=== PATIENT | female | born 1980 | race Caucasian/White ===

== ENCOUNTER 2019-01-28 23:21 | Inpatient (IN) ==
[2019-01-29] MEDS ORDERED: Ibuprofen 600 MG TABLET PO ONE (00:15)
[2019-01-29 00:16] LABS: Acetaminophen < 10 mcg/mL (10-20); BUN/Creatinine Ratio 21 (6-26); Blood Urea Nitrogen 15 mg/dL (6-20); Calcium 8.7 mg/dL (8.6-10.3); Carbon Dioxide 23 mEq/L (23-29); Chloride 111 mEq/L (98-107); Ethanol < 10 mg/dL (Less than 10); Glucose 102 mg/dL (70-105); Osmolality,Calculated 291 (280-300); Potassium 3.6 mEq/L (3.5-5.1); Salicylate < 2.5 mg/dL (15.0-30.0); Sodium 140 mEq/L (136-145); eGFR For African Americans > 60 (> 60); eGFR For Non-African Americans > 60 (> 60)
[2019-01-29 00:20] LABS: Bilirubin,Urine Negative (Negative); Blood,Urine Negative (Negative); Clarity,Urine Clear (Clear); Color,Urine Yellow (Yellow); Glucose,Urine (UA) Normal (Normal); Ketones,Urine Negative (Negative); Leukocyte Esterase,Urine Trace (Negative); Nitrite,Urine Negative (Negative); PH,Urine 6.5 pH Units (5.0-8.0); Protein,Urine Negative (Neg-Trace); Specific Gravity,Urine 1.027 (1.010-1.025); Urobilinogen,Urine Normal (Normal)
[2019-01-29 00:22] LABS: Bacteria,Urine Few per hpf (None-Few); Hyaline Casts,Urine None Seen per lpf (None-Few); Squamous Epithelial Cell,Urine Many per lpf (None-Few)
[2019-01-29 00:26] LABS: Amphetamine Screen,Urine Negative ng/mL (Cutoff=1000); Barbiturate Screen,Urine Negative ng/mL (Cutoff=200); Benzodiazepines Screen,Urine Negative ng/mL (Cutoff=200); Cannabinoid Screen,Urine Positive ng/mL (Cutoff = 50); Cocaine Screen,Urine Negative ng/mL (Cutoff= 300); Opiate Screen,Urine Negative ng/mL (Cutoff=300); Phencyclidine Screen,Urine Negative ng/mL (Cutoff=25)
[2019-01-29 00:30] LABS: Basophils # 0.1 K/mcL (0.0-0.2); Basophils % 0.7 %; Eosinophils # 0.3 K/mcL (0.0-0.6); Hemoglobin 13.2 g/dL (11.5-15.4); Lymphocytes # 2.7 K/mcL (0.6-4.6); Lymphocytes % 23.4 %; Mean Corpuscular HGB Conc 33.8 g/dL (31.6-35.5); Mean Corpuscular Volume 94.7 fL (83.0-100.0); Mean Platelet Volume 10.1 fL (9.4-12.4); Monocytes # 1.1 K/mcL (0.0-1.3); Monocytes % 9.8 %; Neutrophils # 7.1 K/mcL (1.6-8.9); Platelet Count 270 K/mcL (140-400); Red Blood Count 4.12 M/mcL (3.82-4.97); Red Cell Distribution Width 12.7 % (11.5-14.5); Segmented Neutrophils % 62.1 %; White Blood Count 11.4 K/mcL (4.3-11.1)
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
[2019-01-29 00:37] LABS: RBC,Urine 0-3 per hpf (0-3)
--- NOTE | 2019-01-29 02:22 | Emergency Department Note ---
Disposition Clinical Impression: Suicidal ideation Depression Qualifiers: Depression Type: unspecified Qualified Code(s): F32.9 - Major depressive disorder, single episode, unspecified Disposition: Admitted As Inpatient Condition: Good Referrals: NONE,PCP [Primary Care Provider] - Forms: ED Satisfaction Letter Time of Disposition: 02:19 General Adult HPI - General Chief complaint: ED Psychiatric Symptoms Stated complaint: si Time Seen by Provider: 01/28/19 23:34 Source: EMS Mode of arrival: private vehicle Limitations: no limitations Nursing Notes Reviewed: Yes Vital Signs Reviewed: Yes - History of Present Illness Pain Scale: 7 - Related Data Home Medications Medication Instructions Recorded Confirmed Buspar 08/21/18 Flexeril 08/21/18 Gabapentin 08/21/18 Omeprazole 08/21/18 Sertraline 08/21/18 Zofran ODT 08/21/18 08/21/18 Previous Rx's Medication Instructions Recorded Loperamide [Imodium] 2 mg PO Q4HR PRN #20 capsule 08/21/18 Allergies Allergy/AdvReac Type Severity Reaction Status Date / Time sumatriptan [From Imitrex] Allergy See Verified 08/21/18 12:59 Comments twilight AdvReac See Uncoded 08/21/18 13:01 Comments Constitutional: Denies: fever, chills Cardiovascular: Denies: chest pain Respiratory: Denies: cough, dyspnea Gastrointestinal: Denies: abdominal pain Past Medical History - Past Medical History Medical history: Reports: other Surgical history: Reports: , hysterectomy, orthopedic, other Psychiatric history: Reports: bipolar [employer] history: Reports: bilateral tubal ligation - Social History Smoking Status: Never smoker Smokeless Tobacco Status: No Alcohol use: Reports: rarely Drug use: Reports: marijuana Physical Exam - General Limitations: no limitations General appearance: alert, in no apparent distress Course Vital Signs Temperature 97.6 F 01/28/19 23:39 Pulse Rate 63 01/28/19 23:39 Respiratory Rate 16 01/28/19 23:39 Blood Pressure 124/85 01/28/19 23:39 O2 Sat by Pulse Oximetry 97 01/28/19 23:39 Temperature 97.6 F 01/28/19 23:39 Pulse Rate 63 01/28/19 23:39 Respiratory Rate 16 01/28/19 23:39 Blood Pressure 124/85 01/28/19 23:39 O2 Sat by Pulse Oximetry 97 01/28/19 23:39 Oxygen Delivery Oxygen Delivery Room Air Medical Decision Making - Lab Data Lab results reviewed: Yes I reviewed the patient's lab results. Result diagrams: 01/28/19 23:45 01/28/19 23:45 Lab Results 01/28/19 01/28/19 01/28/19 Range/Units 23:45 23:45 23:54 WBC 11.4 H (4.3-11.1) K/mcL RBC 4.12 (3.82-4.97) M/mcL Hgb 13.2 (11.5-15.4) g/dL Hct 39.0 (35.3-44.9) % MCV 94.7 (83.0-100.0) fL MCH 32.0 (28.0-33.3) pg MCHC 33.8 (31.6-35.5) g/dL RDW 12.7 (11.5-14.5) % Plt Count 270 (140-400) K/mcL MPV 10.1 (9.4-12.4) fL Immature Gran % 1.0 (0-4) % Seg Neutrophils % 62.1 % Lymphocytes % 23.4 % Monocytes % 9.8 % Eosinophils % 3.0 % Basophils % 0.7 % Neutrophils # 7.1 (1.6-8.9) K/mcL Lymphocytes # 2.7 (0.6-4.6) K/mcL Monocytes # 1.1 (0.0-1.3) K/mcL Eosinophils # 0.3 (0.0-0.6) K/mcL Basophils # 0.1 (0.0-0.2) K/mcL Sodium 140 (136-145) mEq/L Potassium 3.6 (3.5-5.1) mEq/L Chloride 111 H (98-107) mEq/L Carbon Dioxide 23 (23-29) mEq/L BUN 15 (6-20) mg/dL Creatinine 0.70 (0.60-1.20) mg/dL Est GFR ( Amer) > 60 (> 60) Est GFR (Non-Af Amer) > 60 (> 60) BUN/Creatinine Ratio 21 (6-26) Glucose 102 (70-105) mg/dL Calculated Osmolality 291 (280-300) Calcium 8.7 (8.6-10.3) mg/dL Urine Color Yellow (Yellow) Urine Clarity Clear (Clear) Urine pH 6.5 (5.0-8.0) pH Units Ur Specific [place] 1.027 H (1.010-1.025) Urine Protein Negative (Neg-Trace) mg/dL Urine Glucose (UA) Normal (Normal) mg/dL Urine Ketones Negative (Negative) mg/dL Urine Blood Negative (Negative) Urine Nitrite Negative (Negative) Urine Bilirubin Negative (Negative) Urine Urobilinogen Normal (Normal) mg/dL Ur Leukocyte Esterase Trace H (Negative) Urine Microscopic RBC 0-3 (0-3) per hpf Urine Microscopic WBC 3-5 H (0-3) per hpf Ur Squamous Epith Cells Many H (None-Few) per lpf Urine Bacteria Few (None-Few) per hpf Hyaline Casts None Seen (None-Few) per lpf Urine Test (Negative) Salicylates < 2.5 L (15.0-30.0) mg/dL Urine Opiates Screen (Jkertr=007) ng/mL Ur Buprenorphine Scrn (Cutoff=5) ng/mL Acetaminophen < 10 L (10-20) mcg/mL Ur Barbiturates Screen (Ibwnos=325) ng/mL Ur Phencyclidine Scrn (Cutoff=25) ng/mL Ur Amphetamines Screen (Absvww=4086) ng/mL U Benzodiazepines Scrn (Rsdlns=562) ng/mL Urine Cocaine Screen (Cutoff= 300) ng/mL U Marijuana (THC) Screen (Cutoff = 50) ng/mL Ur Drug Screen Interp Ethyl Alcohol < 10 (Less than 10) mg/dL 01/28/19 01/28/19 Range/Units 23:54 23:54 WBC (4.3-11.1) K/mcL RBC (3.82-4.97) M/mcL Hgb (11.5-15.4) g/dL Hct (35.3-44.9) % MCV (83.0-100.0) fL MCH (28.0-33.3) pg MCHC (31.6-35.5) g/dL RDW (11.5-14.5) % Plt Count (140-400) K/mcL MPV (9.4-12.4) fL Immature Gran % (0-4) % Seg Neutrophils % % Lymphocytes % % Monocytes % % Eosinophils % % Basophils % % Neutrophils # (1.6-8.9) K/mcL Lymphocytes # (0.6-4.6) K/mcL Monocytes # (0.0-1.3) K/mcL Eosinophils # (0.0-0.6) K/mcL Basophils # (0.0-0.2) K/mcL Sodium (136-145) mEq/L Potassium (3.5-5.1) mEq/L Chloride (98-107) mEq/L Carbon Dioxide (23-29) mEq/L BUN (6-20) mg/dL Creatinine (0.60-1.20) mg/dL Est GFR ( Amer) (> 60) Est GFR (Non-Af Amer) (> 60) BUN/Creatinine Ratio (6-26) Glucose (70-105) mg/dL Calculated Osmolality (280-300) Calcium (8.6-10.3) mg/dL Urine Color (Yellow) Urine Clarity (Clear) Urine pH (5.0-8.0) pH Units Ur Specific [place] (1.010-1.025) Urine Protein (Neg-Trace) mg/dL Urine Glucose (UA) (Normal) mg/dL Urine Ketones (Negative) mg/dL Urine Blood (Negative) Urine Nitrite (Negative) Urine Bilirubin (Negative) Urine Urobilinogen (Normal) mg/dL Ur Leukocyte Esterase (Negative) Urine Microscopic RBC (0-3) per hpf Urine Microscopic WBC (0-3) per hpf Ur Squamous Epith Cells (None-Few) per lpf Urine Bacteria (None-Few) per hpf Hyaline Casts (None-Few) per lpf Urine Test Negative (Negative) Salicylates (15.0-30.0) mg/dL Urine Opiates Screen Negative (Lzrbvw=807) ng/mL Ur Buprenorphine Scrn Negative (Cutoff=5) ng/mL Acetaminophen (10-20) mcg/mL Ur Barbiturates Screen Negative (Wxqydi=914) ng/mL Ur Phencyclidine Scrn Negative (Cutoff=25) ng/mL Ur Amphetamines Screen Negative (Fuaaea=9037) ng/mL U Benzodiazepines Scrn Negative (Ecbbso=695) ng/mL Urine Cocaine Screen Negative (Cutoff= 300) ng/mL U Marijuana (THC) Screen Positive H (Cutoff = 50) ng/mL Ur Drug Screen Interp See Below Ethyl Alcohol (Less than 10) mg/dL Attestation Statement - Attestation Attestation: I, Velasquez Lu MD, personally evaluated this patient and discussed their management with the midlevel provicer, PAC/RADIO DIRECTOR. I reviewed the midlevel provider's note and agree with the documented findings, medical decision making, and plan of care. 38-year-old female presented to the emergency department complaining of some suicidal ideation. No homicidal ideation. No hallucinations. On examination patient is a well-developed well-nourished well-appearing female in no acute distress. She is alert and oriented 3. There is no cyanosis or diaphoresis. Breath sounds are clear and equal bilaterally. Heart regular rate and rhythm. Abdomen is soft and nontender with normal bowel sounds. Labs reviewed. Patient medically cleared for psychiatric evaluation. [address] psychiatry department was consulted and evaluated patient in the emergency department. After evaluation patient is being admitted to the [address] psychiatric unit.
[2019-01-29] MEDS ORDERED: Mag Hydrox/Al Hydrox/Simeth 30 ML UDC PO PRN (02:32)
[2019-01-29] MEDS ORDERED: *HR* LORazepam 2 MG/ML VIAL IM PRN (02:32)
[2019-01-29] MEDS ORDERED: MOM Conc 10 ML UD.LIQ PO PRN (02:32)
[2019-01-29] MEDS ORDERED: Haloperidol Lactate 5 MG/ML VIAL IM PRN (02:32)
[2019-01-29] MEDS ORDERED: *HR* LORazepam 1 MG TABLET PO PRN (02:32)
[2019-01-29] MEDS ORDERED: Acetaminophen 325 MG TABLET PO PRN (02:32)
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
[2019-01-29] MEDS ORDERED: Ondansetron ODT 4 MG TAB.RAPDIS PO PRN (12:52)
[2019-01-29] MEDS ORDERED: traZODone 50 MG TABLET PO PRN (12:52)
[2019-01-29] MEDS: Gabapentin 400 MG CAPSULE PO SCH ×2 (14:25→20:50)
[2019-01-29] MEDS: Lurasidone 20 MG TABLET PO SCH (20:50)
[2019-01-29] MEDS: hydrOXYzine pamoate 25 MG CAPSULE PO PRN (20:53)
[2019-01-29] MEDS: rOPINIRole 0.25 MG TABLET PO SCH (20:53)
[2019-01-30] MEDS: Gabapentin 400 MG CAPSULE PO SCH ×2 (10:38→21:22)
--- NOTE | 2019-01-30 10:58 | Psychiatry Progress Note ---
Date of Encounter: 01/30/19 Time of Encounter: 10:49 Subjective Interval history: Client reports she is doing better. Slept hard last night. Claims she has not slept that well in a long time. Restlessness did not interfere with sleep so hopefully the Requip is doing something for her. Client talked to sister last night. Sister states she took Neurontin in the past and had side effects to it including akathesia type restlessness. Client wondering if she should stop Neurontin. However, she does report some benefit from it for Fibromyalgia. Discussed how her new antidepressant, Cymbalta, can also offer some benefit for Fibromyalgia. Discussed starting to reduce Neurontin and titrating up on the Cymbalta and client expressed interest in doing this. Denying SI today. If she does well with med changes and continues to deny SI may be able to discharge as soon as tomorrow. Review of Systems Constitutional: Denies: fever, chills, weakness, weight change Eyes: Denies: eye pain, vision change Ears, Nose, Throat: Denies: ear pain, throat pain, dental pain, hearing loss, congestion Cardiovascular: Denies: chest pain, palpitations, dyspnea on exertion Respiratory: Denies: cough, dyspnea, wheezes Gastrointestinal: Denies: abdominal pain, nausea, vomiting, diarrhea, constipation Musculoskeletal: Denies: joint swelling, joint pain Neurological: Denies: headache, weakness, numbness, memory loss Results - Vital Signs Vital Signs: Temp Pulse Resp BP Pulse Ox 97.9 F 58 16 127/71 98 01/29/19 20:24 01/29/19 20:24 01/29/19 20:24 01/29/19 20:24 01/29/19 20:24 Assessment and Plan (1) Major depressive disorder Current visit: Yes Status: Acute Plan: Continue hospitalization, Close observation, Suicide Precautions per unit protocol, Encourage participation in unit milieu, Group Therapy, Monitor sleep, Monitor appetite Risks, benefits, side effects, alternatives discussed w/pt: Yes Patient agreeable to treatment: Yes Qualifiers: Major depression recurrence: recurrent Active/Remission status: currently active Major depression episode severity: severe Psychotic features: without psychotic features Qualified Code(s): F33.2 - Major depressive disorder, recurrent severe without psychotic features Consult Discharge Plan - Plan Referrals: [facility] [Outside] - 02/03/19 7:30 am (You have an appointment scheduled for Sunday, February 03, 2019 at 7:[address] Gillian Kohler D.O. for medication management. Please contact the office at least 24 hours in advance if you are unable to keep your appointment(s). ) Psychiatry Exam - Constitutional Vitals: Temp Pulse Resp BP Pulse Ox 97.9 F 58 16 127/71 98 01/29/19 20:24 01/29/19 20:24 01/29/19 20:24 01/29/19 20:24 01/29/19 20:24 General appearance: age & developmentally appropriate, well-groomed, well- nourished - Musculoskeletal Gait: normal Station: relaxed Strength & Tone: normal for patient - Psychiatric Patient Orientation: Yes Person, Yes Time, Yes Place Level of alertness: Alert Behavior: calm, cooperative Psychomotor activity: Normal Eye Contact: Maintains Eye Contact Mood Description: Depressed Affect description: congruent with mood Speech Volume: Normal Speech pattern: normal rate, normal rhythm, normal tone, fluent, spontaneous Language & Vocabulary: consistent with education Thought Process: Linear, Goal Oriented Thought Content: No Suicidal ideation, No Homicidal ideation, No Overt delusions Perceptual Disturbances: No Auditory hallucinations, No Visual hallucinations Attention Span Ability: Capable of Focused Attention Memory Description: Grossly Intact Patient Reliability: Reliable Historian Fund of knowledge: Yes abstraction ability, Yes aware of current events Intelligence Estimate: Average Judgment: Fair Insight: Partial
[2019-01-30] MEDS: hydrOXYzine pamoate 25 MG CAPSULE PO PRN ×2 (13:56→21:22)
[2019-01-30] MEDS: rOPINIRole 0.25 MG TABLET PO SCH (21:22)
[2019-01-30] MEDS: Lurasidone 20 MG TABLET PO SCH (21:23)
[2019-01-30] MEDS: traZODone 50 MG TABLET PO PRN (21:25)
[2019-01-31] MEDS: Gabapentin 400 MG CAPSULE PO SCH ×2 (09:51→20:08)
--- NOTE | 2019-01-31 11:57 | Psychiatry Progress Note ---
Date of Encounter: 01/31/19 Time of Encounter: 11:50 Subjective Interval history: Tentative plan was to discharge client today but she has put the brakes on. Wants to go home tomorrow instead. States she had a lot of anxiety last night and could not sleep. Family visited yesterday. Although staff report it seemed like a good visit, client states she felt very stressed. Became aggravated when she learned that her mother came to her house and threw away her prescriptions. States she also learned her family is not giving the dog food and water like they should and that they are leaving dirty dishes everywhere. Doesn't feel able to deal with these life stressors yet. Limited coping skills. Client would likely benefit from groups to learn new ways of managing her stress. Since she has been here over the weekend she has not had exposure to the groups. Likely would benefit from one more day in the hospital. Denies SI but remains tense. Decrease in Neurontin may have also heightened her anxiety level. Will not make any additional med changes and give her time to adjust. Review of Systems Constitutional: Denies: fever, chills, weakness, weight change Eyes: Denies: eye pain, vision change Ears, Nose, Throat: Denies: ear pain, throat pain, dental pain, hearing loss, congestion Cardiovascular: Denies: chest pain, palpitations, dyspnea on exertion Respiratory: Denies: cough, dyspnea, wheezes Gastrointestinal: Denies: abdominal pain, nausea, vomiting, diarrhea, constipation Musculoskeletal: Denies: joint swelling, joint pain Neurological: Denies: headache, weakness, numbness, memory loss Results - Vital Signs Vital Signs: Temp Pulse Resp BP Pulse Ox 97.3 F L 56 16 130/91 100 01/31/19 09:00 01/31/19 09:00 01/31/19 09:00 01/31/19 09:00 01/31/19 09:00 Assessment and Plan (1) Major depressive disorder Current visit: Yes Status: Acute Plan: Continue hospitalization, Close observation, Suicide Precautions per unit protocol, Encourage participation in unit milieu, Group Therapy, Monitor sleep, Monitor appetite Risks, benefits, side effects, alternatives discussed w/pt: Yes Patient agreeable to treatment: Yes Qualifiers: Major depression recurrence: recurrent Active/Remission status: currently active Major depression episode severity: severe Psychotic features: without psychotic features Qualified Code(s): F33.2 - Major depressive disorder, recurrent severe without psychotic features Consult Discharge Plan - Plan Referrals: [facility] [Outside] - 02/03/19 7:30 am (You have an appointment scheduled for Sunday, February 03, 2019 at 7:[address] Gillian Kohler D.O. for medication management. Please contact the office at least 24 hours in advance if you are unable to keep your appointment(s). ) Psychiatry Exam - Constitutional Vitals: Temp Pulse Resp BP Pulse Ox 97.3 F L 56 16 130/91 100 01/31/19 09:00 01/31/19 09:00 01/31/19 09:00 01/31/19 09:00 01/31/19 09:00 General appearance: age & developmentally appropriate, well-groomed, well- nourished - Musculoskeletal Gait: normal Station: relaxed Strength & Tone: normal for patient - Psychiatric Patient Orientation: Yes Person, Yes Time, Yes Place Level of alertness: Alert Behavior: calm, cooperative Psychomotor activity: Normal Eye Contact: Maintains Eye Contact Mood Description: Depressed, Anxious Affect description: congruent with mood Speech Volume: Normal Speech pattern: normal rate, normal rhythm, normal tone, fluent, spontaneous Language & Vocabulary: consistent with education Thought Process: Linear, Goal Oriented Thought Content: No Suicidal ideation, No Homicidal ideation, No Overt delusions Perceptual Disturbances: No Auditory hallucinations, No Visual hallucinations Attention Span Ability: Capable of Focused Attention Memory Description: Grossly Intact Patient Reliability: Reliable Historian Fund of knowledge: Yes abstraction ability, Yes aware of current events Intelligence Estimate: Average Judgment: Fair Insight: Partial
[2019-01-31] MEDS: traZODone 50 MG TABLET PO PRN (20:07)
[2019-01-31] MEDS: hydrOXYzine pamoate 25 MG CAPSULE PO PRN (20:07)
[2019-01-31] MEDS: Lurasidone 20 MG TABLET PO SCH (20:08)
[2019-01-31] MEDS: rOPINIRole 0.25 MG TABLET PO SCH (20:08)
[2019-02-01] MEDS: Gabapentin 400 MG CAPSULE PO SCH ×2 (08:58→20:56)
[2019-02-01] MEDS: hydrOXYzine pamoate 25 MG CAPSULE PO PRN (10:47)
[2019-02-01] MEDS ORDERED: Ziprasidone 20 MG CAPSULE PO PRN (13:11)
--- NOTE | 2019-02-01 14:25 | Psychiatry Progress Note ---
Date of Encounter: 02/01/19 Time of Encounter: 10:20 Subjective Interval history: Client seen in common area. She was affable, calm, cooperative. Client hesitant when responding to Suicidal ideation/plan/intent. She endorsed some thoughts of SI without plan or intent. Client actively crying while discussing discharge plans and relationship with her spouse. She reports feeling well rested and slept well. She participated in group today. Review of Systems Constitutional: Denies: fever, chills, weakness Eyes: Denies: vision change Ears, Nose, Throat: Denies: hearing loss, congestion Cardiovascular: Denies: chest pain, palpitations, dyspnea on exertion, syncope Respiratory: Denies: cough, dyspnea, wheezes Gastrointestinal: Denies: abdominal pain, nausea, vomiting, diarrhea, constipation Genitourinary female: Denies: urgency, dysuria, frequency Musculoskeletal: Denies: joint pain Neurological: Denies: headache, weakness, numbness, confusion, memory loss Psychiatric: Reports: depression, anxiety, suicidal ideation. Denies: abnormal sleep pattern, change in appetite, homicidal ideation Results - Vital Signs Vital Signs: Temp Pulse Resp BP Pulse Ox 97.6 F 63 18 115/85 100 02/01/19 09:00 02/01/19 09:00 02/01/19 09:00 02/01/19 09:00 02/01/19 09:00 Assessment and Plan (1) Major depressive disorder Current visit: Yes Status: Acute Plan: Continue hospitalization, Close observation, Suicide Precautions per unit protocol, Encourage participation in unit milieu, Group Therapy, Monitor sleep Risks, benefits, side effects, alternatives discussed w/pt: Yes Patient agreeable to treatment: Yes Qualifiers: Major depression recurrence: recurrent Active/Remission status: currently active Major depression episode severity: severe Psychotic features: without psychotic features Qualified Code(s): F33.2 - Major depressive disorder, recurrent severe without psychotic features Consult Discharge Plan - Plan Referrals: [facility] [Outside] - 02/03/19 7:30 am (You have an appointment scheduled for Friday, February 03, 2019 at 7:30 AM with Edwin [email or web address] for medication management. Please contact the office at least 24 hours in advance if you are unable to keep your appointment(s). ) - Attending Attestation I examined this patient and my medical decision-making was reviewed with the Resident Physician. I agree with the documented findings, disposition and treatment plan as described except to the extent set forth below. Agree with mental status and plan. Psychiatry Exam - Constitutional Vitals: Temp Pulse Resp BP Pulse Ox 97.6 F 63 18 115/85 100 02/01/19 09:00 02/01/19 09:00 02/01/19 09:00 02/01/19 09:00 02/01/19 09:00 General appearance: age & developmentally appropriate - Musculoskeletal Gait: normal Station: relaxed Strength & Tone: normal for patient - Psychiatric Patient Orientation: Yes Person, Yes Time, Yes Place, Yes Circumstance Level of alertness: Alert Behavior: calm, cooperative, tearful Psychomotor activity: Normal Eye Contact: Maintains Eye Contact Mood Description: Depressed, Anxious Affect description: congruent with mood Speech Volume: Normal Speech pattern: normal rate, normal rhythm, normal tone Language & Vocabulary: consistent with education Thought Process: Intact, Logical, Linear, Goal Oriented Thought Content: Yes Intact, Yes Suicidal ideation, No Homicidal ideation, No Overt delusions, No Ideas of reference, No Preoccupation Perceptual Disturbances: No Reacting to internal stimuli, No Auditory hallucinations, No Visual hallucinations, No Tactile hallucinations Attention Span Ability: Capable of Focused Attention Memory Description: Grossly Intact Patient Reliability: Reliable Historian Fund of knowledge: Yes abstraction ability Intelligence Estimate: Average Judgment: Fair Insight: Partial
[2019-02-01] MEDS: Lurasidone 20 MG TABLET PO SCH (20:52)
[2019-02-01] MEDS: rOPINIRole 0.25 MG TABLET PO SCH (20:57)
[2019-02-01] MEDS: traZODone 50 MG TABLET PO PRN (20:57)
[2019-02-02] MEDS: Gabapentin 400 MG CAPSULE PO SCH (08:15)
[2019-02-02 09:43] VITALS: BP 111/82
--- NOTE | 2019-02-02 09:48 | Discharge Summary ---
Date of Encounter: 02/02/19 Time of Encounter: 08:00 Diagnosis - Discharge Diagnosis (1) Major depressive disorder Status: Acute Qualifiers: Major depression recurrence: recurrent Active/Remission status: currently active Major depression episode severity: severe Psychotic features: without psychotic features Qualified Code(s): F33.2 - Major depressive disorder, recurrent severe without psychotic features Medications - Discharge Medications Prescriptions: DULoxetine [Cymbalta] 60 mg PO DAILY #30 capsule. hydrOXYzine pamoate [Vistaril] 25 mg PO TID PRN #45 capsule PRN Reason: Anxiety Buspirone HCl [Buspar] 15 mg PO BID PRN 08/21/18 [History] Cyclobenzaprine HCl 5 mg PO TID PRN 08/21/18 [History] Ondansetron ODT [Zofran ODT] 4 mg PO TID PRN 08/21/18 [History] Gabapentin 800 mg PO BID 01/29/19 [History] Lurasidone HCl [Latuda] 60 mg PO HS 01/29/19 [History] Trazodone HCl 50 mg PO HS PRN 01/29/19 [History] DULoxetine [Cymbalta] 60 mg PO DAILY #30 capsule. 02/02/19 [Rx] hydrOXYzine pamoate [Vistaril] 25 mg PO TID PRN #45 capsule 02/02/19 [Rx] rOPINIRole [Requip] 0.25 mg PO HS tablet 02/02/19 [Rx] Allergy/AdvReac Type Severity Reaction Status Date / Time sumatriptan [From Imitrex] Allergy See Verified 01/29/19 11:51 Comments twilight AdvReac See Uncoded 01/29/19 11:51 Comments Results Procedures and tests throughout hospitalization: Completed Lab Orders Category Date Time Status Acetaminophen Stat Lab 01/28/19 23:45 Completed Basic Metabolic Panel Stat Lab 01/28/19 23:45 Completed Complete Blood Count [HEME] Stat Lab 01/28/19 23:45 Completed Drug Screen, Urine [UCHEM] Stat Lab 01/28/19 23:54 Completed Ethanol Stat Lab 01/28/19 23:45 Completed Test Result, Urine [URIN] Stat Lab 01/28/19 23:54 Completed Salicylate Stat Lab 01/28/19 23:45 Completed Urinalysis reflex Microscopic [URIN] Stat Lab 01/28/19 23:54 Completed Provider Date of admission: 01/29/19 02:20 Primary care physician: PCP NONE Discharging clinician: Nesah Eli Psychiatry Exam - Constitutional Vitals: Temp Pulse Resp BP Pulse Ox 97.0 F L 68 18 111/82 99 02/02/19 09:00 02/02/19 09:00 02/02/19 09:00 02/02/19 09:00 02/02/19 09:00 General appearance: age & developmentally appropriate, well-groomed, well- nourished - Musculoskeletal Gait: normal Station: relaxed Strength & Tone: normal for patient - Psychiatric Patient Orientation: Yes Person, Yes Time, Yes Place, Yes Circumstance Level of alertness: Alert Behavior: calm, cooperative Psychomotor activity: Normal Eye Contact: Maintains Eye Contact Mood Description: Euthymic/stable Patient description of mood: Good Affect description: congruent with mood, full range Speech Volume: Normal Speech pattern: normal rate, normal rhythm, normal tone, fluent, spontaneous Language & Vocabulary: consistent with education Thought Process: Linear, Goal Oriented Thought Content: No Suicidal ideation, No Homicidal ideation, No Overt delusions Perceptual Disturbances: No Auditory hallucinations, No Visual hallucinations Attention Span Ability: Capable of Focused Attention Memory Description: Grossly Intact Patient Reliability: Reliable Historian Fund of knowledge: Yes abstraction ability, Yes aware of current events Intelligence Estimate: Average Judgment: Good Insight: Full Hospital Course Hospital course: Ms. Wood is a 38 year old female who was admitted for depression and suicidal ideation. She was started on Cymbalta and Vistaril for anxiety.Patient was educated of diagnosis and the risk-benefit side effects of this alternative treatment options and was monitored for responsiveness and side effects. Mood anxiety sleep and appetite interest improved as did future orientation. Self- harm thoughts subsided, thinking cleared, psychosis resolved, and mood stabilized. Patient was able to attend both individual and group therapy sessions as well as meet with the psychiatrist daily and urged to discuss any medication or treatment issues or other concerns. The patient was educated primarily by verbal means about their diagnosis and manifestations in their life. The option for treatment including group and individual therapy programming was offered to the patient in addition to the use of medications with all their potential risks, benefits, and side effects as well as the risks of not taking medication and non-adhereance were discussed with the patient at length. The patient was given the opportunity to ask questions and was noted to participate in the treatment in the planning process. The patient felt ready and eager to be discharged from the inpatient psychiatric unit to continue on with treatment as an outpatient. The patient agreed that is they were safe for this disposition. The patient was considered to be able to participate in informed consent and decision making with respect to medical, legal, and financial issues of the time of discharge. At the time of discharge the patient adamantly denied any concerns for lethality including suicidal or homicidal thoughts ideations or plans and was future oriented toward ongoing mental health care, medical follow-up and sobriety. Time spent discussing smoking cessation with patient: 3 to 10 minutes - Time Spent with Patient Total time spent providing and/or coordinating discharge services: 25 Less than 30 minutes Specific discharge activities: Interval history reviewed. Available labs reviewed . Psychotherapy provided. Patient had an opportunity to ask questions and address concerns. Patient was in agreement with the treatment plan. The r isks benefits and side effects of medications were discussed with the patient, including alternatives and treatment. The patient was educated on the abstaining from any alcohol or illicit substances, following up with all scheduled appointments, and taking all medications as prescribed. Assessment and Plan - Patient/Caregiver Discharge Instructions Activity: resume usual activities as tolerated Diet: regular diet Additional Instructions: Continue current medications. Follow up with outpatient mental health. Encourage continued therapy in a group or individual setting. The patient was discharged to home. - Follow up Plan Follow up with: [facility] [Outside] - 02/03/19 7:30 am (You have an appointment scheduled for Sunday, February 03, 2019 at 7:[address] Gillian Kohler D.O. for medication management. Please contact the office at least 24 hours in advance if you are unable to keep your appointment(s). ) Overall status at discharge: Stable Disposition: Home, Self-Care Quality - Multiple Antipsychotics Patient discharged on 2 or more antipsychotic medications: No Procedures - Procedures Procedures: Medication Management, Crisis Stabilization, Supportive Therapy, Group Therapy, Psychoeducational Therapy
== END 2019-02-02 17:20 | disposition home or self-care (01) | DRG 751 ==
LOC: EMEROOARM 23:21 → 1ANU 23:21 → OBSVTOIN 01-29 02:20 → 1ANU 01-29 02:27
PROVIDERS: ADMIT Psychiatry & Neurology Psychiatry; ATTEND Psychiatry & Neurology Psychiatry

== ENCOUNTER 2019-06-07 17:31 | Inpatient (IN) ==
[2019-06-07 17:58] LABS: Bilirubin,Urine Negative (Negative); Blood,Urine Negative (Negative); Clarity,Urine Cloudy (Clear); Color,Urine Yellow (Yellow); Glucose,Urine (UA) Normal (Normal); Ketones,Urine Negative (Negative); Leukocyte Esterase,Urine Negative (Negative); Nitrite,Urine Negative (Negative); PH,Urine 5.5 pH Units (5.0-8.0); Protein,Urine Negative (Neg-Trace); Specific Gravity,Urine 1.018 (1.010-1.025); Urobilinogen,Urine Normal (Normal)
[2019-06-07 17:59] LABS: Bacteria,Urine Few per hpf (None-Few); Hyaline Casts,Urine None Seen per lpf (None-Few); Squamous Epithelial Cell,Urine Many per lpf (None-Few); WBC,Urine 0-3 per hpf (0-3)
[2019-06-07 18:10] LABS: RBC,Urine 0-3 per hpf (0-3)
[2019-06-07 18:21] LABS: Amphetamine Screen,Urine Negative ng/mL (Cutoff=1000); Barbiturate Screen,Urine Negative ng/mL (Cutoff=200); Benzodiazepines Screen,Urine Negative ng/mL (Cutoff=200); Cannabinoid Screen,Urine Positive ng/mL (Cutoff = 50); Cocaine Screen,Urine Negative ng/mL (Cutoff= 300); Opiate Screen,Urine Negative ng/mL (Cutoff=300); Phencyclidine Screen,Urine Negative ng/mL (Cutoff=25)
[2019-06-07 18:24] LABS: Basophils # 0.1 K/mcL (0.0-0.2); Basophils % 0.7 %; Eosinophils # 0.2 K/mcL (0.0-0.6); Eosinophils % 1.6 %; Hematocrit 44.2 % (35.3-44.9); Hemoglobin 15.1 g/dL (11.5-15.4); Immature Granulocytes % 0.3 % (0-4); Lymphocytes # 3.6 K/mcL (0.6-4.6); Mean Corpuscular HGB Conc 34.2 g/dL (31.6-35.5); Mean Corpuscular Hemoglobin 32.6 pg (28.0-33.3); Mean Corpuscular Volume 95.5 fL (83.0-100.0); Mean Platelet Volume 9.7 fL (9.4-12.4); Monocytes # 1.1 K/mcL (0.0-1.3); Monocytes % 10.3 %; Neutrophils # 5.7 K/mcL (1.6-8.9); Platelet Count 303 K/mcL (140-400); Red Blood Count 4.63 M/mcL (3.82-4.97); Segmented Neutrophils % 53.1 %; White Blood Count 10.6 K/mcL (4.3-11.1)
[2019-06-07 18:53] LABS: Acetaminophen < 10 mcg/mL (10-20); BUN/Creatinine Ratio 19 (6-26); Blood Urea Nitrogen 13 mg/dL (6-20); Calcium 9.7 mg/dL (8.6-10.3); Carbon Dioxide 20 mEq/L (23-29); Chloride 107 mEq/L (98-107); Ethanol < 10 mg/dL (Less than 10); Glucose 101 mg/dL (70-105); Osmolality,Calculated 284 (280-300); Potassium 3.5 mEq/L (3.5-5.1); Salicylate < 2.5 mg/dL (15.0-30.0); Sodium 137 mEq/L (136-145); eGFR For African Americans > 60 (> 60); eGFR For Non-African Americans > 60 (> 60)
[2019-06-07] MEDS ORDERED: *HR* LORazepam 1 MG TABLET PO PRN (20:38)
[2019-06-07] MEDS ORDERED: traZODone 50 MG TABLET PO PRN (20:38)
[2019-06-07] MEDS ORDERED: *HR* LORazepam 2 MG/ML VIAL IM PRN (20:38)
[2019-06-07] MEDS ORDERED: Mag Hydrox/Al Hydrox/Simeth 30 ML UDC PO PRN (20:38)
[2019-06-07] MEDS ORDERED: MOM Conc 10 ML UD.LIQ PO PRN (20:38)
[2019-06-07] MEDS ORDERED: Haloperidol Lactate 5 MG/ML VIAL IM PRN (20:38)
[2019-06-07] MEDS ORDERED: Acetaminophen 325 MG TABLET PO PRN (20:38)
[2019-06-07] MEDS ORDERED: Lurasidone 20 MG TABLET PO SCH (21:00)
[2019-06-07] MEDS: hydrOXYzine pamoate 25 MG CAPSULE PO PRN (21:28)
[2019-06-08] MEDS ORDERED: Ondansetron ODT 4 MG TAB.RAPDIS PO PRN (10:26)
[2019-06-08] MEDS: hydrOXYzine pamoate 25 MG CAPSULE PO PRN (13:19)
[2019-06-08] MEDS: Gabapentin 400 MG CAPSULE PO SCH (20:06)
[2019-06-08] MEDS: risperiDONE 1 MG TABLET PO SCH (20:06)
[2019-06-08] MEDS ORDERED: rOPINIRole 0.25 MG TABLET PO SCH (21:00)
[2019-06-09] MEDS: Gabapentin 400 MG CAPSULE PO SCH ×2 (08:18→20:34)
[2019-06-09] MEDS: hydrOXYzine pamoate 25 MG CAPSULE PO PRN ×2 (09:09→11:42)
[2019-06-09 11:28] LABS: Chol/HDL Ratio 5.3 (0-4.9)
[2019-06-09 11:55] LABS: Estimated Average Glucose 114 mg/dl
[2019-06-09] MEDS: clonazePAM 0.5 MG TABLET PO PRN ×2 (15:08→20:36)
[2019-06-09] MEDS: risperiDONE 1 MG TABLET PO SCH (20:34)
[2019-06-09] MEDS ORDERED: rOPINIRole 0.25 MG TABLET PO SCH (21:00)
[2019-06-10] MEDS: Gabapentin 400 MG CAPSULE PO SCH (08:27)
[2019-06-10] MEDS: clonazePAM 0.5 MG TABLET PO PRN (08:28)
[2019-06-10] MEDS ORDERED: Cholecalciferol (D-3) 1,000 UNIT (25MCG) TABLET PO SCH (09:00)
[2019-06-10 09:07] VITALS: BP 123/89
[2019-06-10] MEDS: hydrOXYzine pamoate 25 MG CAPSULE PO PRN (09:51)
== END 2019-06-10 11:33 | disposition home or self-care (01) | DRG 751 ==
LOC: EMEROOARM 17:31 → 1ANU 17:31
PROVIDERS: ADMIT Psychiatry & Neurology Psychiatry; ATTEND Psychiatry & Neurology Psychiatry

== ENCOUNTER 2019-10-13 14:09 | Observation (INO) ==
[2019-10-13] MEDS ORDERED: Isovue-370 500 ML BOTTLE IVP ONE (14:31)
[2019-10-13] MEDS ORDERED: Ondansetron 4 MG/2 ML VIAL IVP ONE (14:33)
[2019-10-13] MEDS ORDERED: *HR* LORazepam 2 MG/ML VIAL IVP ONE ×2 (14:33→22:01)
[2019-10-13] MEDS ORDERED: 0.9 % Sodium Chloride 1,000 ML IVC ONE ×2 (14:33→16:43)
[2019-10-13 14:52] LABS: Basophils # 0.1 K/mcL (0.0-0.2); Basophils % 0.5 %; Eosinophils # 0.1 K/mcL (0.0-0.6); Eosinophils % 0.8 %; Hematocrit 47.6 % (35.3-44.9); Hemoglobin 16.2 g/dL (11.5-15.4); Immature Granulocytes % 0.4 % (0-4); Lymphocytes # 2.5 K/mcL (0.6-4.6); Lymphocytes % 20.6 %; Mean Corpuscular Hemoglobin 31.8 pg (28.0-33.3); Mean Corpuscular Volume 93.5 fL (83.0-100.0); Mean Platelet Volume 10.2 fL (9.4-12.4); Monocytes # 1.1 K/mcL (0.0-1.3); Monocytes % 9.1 %; Neutrophils # 8.4 K/mcL (1.6-8.9); Platelet Count 370 K/mcL (140-400); Red Blood Count 5.09 M/mcL (3.82-4.97); Red Cell Distribution Width 13.1 % (11.5-14.5); Segmented Neutrophils % 68.6 %; White Blood Count 12.2 K/mcL (4.3-11.1)
[2019-10-13 15:11] LABS: Alanine Aminotransferase 43 Units/L (7-52); Albumin 4.7 g/dL (3.5-5.7); Albumin/Globulin Ratio 1.3 (1.1-2.2); Alkaline Phosphatase 111 Units/L (34-104); Aspartate Amino Transferase 31 Units/L (13-39); BUN/Creatinine Ratio 19 (6-26); Bilirubin,Direct 0.1 mg/dL (0.0-0.2); Bilirubin,Indirect 0.7 mg/dL (0.0-1.0); Bilirubin,Total 0.8 mg/dL (0.3-1.0); Blood Urea Nitrogen 14 mg/dL (6-20); C-Reactive Protein < 5 mg/L (Less than 10); Calcium 10.5 mg/dL (8.6-10.3); Carbon Dioxide 21 mEq/L (23-29); Chloride 104 mEq/L (98-107); Globulin 3.7 g/dL (2.4-3.5); Glucose 122 mg/dL (70-105); Osmolality,Calculated 288 (280-300); Potassium 3.4 mEq/L (3.5-5.1); Sodium 138 mEq/L (136-145); Total Protein 8.4 g/dL (6.4-8.9); eGFR For African Americans > 60 (> 60); eGFR For Non-African Americans > 60 (> 60)
[2019-10-13 17:34] LABS: Bilirubin,Urine Negative (Negative); Blood,Urine Moderate (Negative); Clarity,Urine Cloudy (Clear); Color,Urine Yellow (Yellow); Glucose,Urine (UA) Normal (Normal); Ketones,Urine 40 mg/dL (Negative); Leukocyte Esterase,Urine Small (Negative); Nitrite,Urine Negative (Negative); Protein,Urine Negative (Neg-Trace); Specific Gravity,Urine 1.014 (1.010-1.025); Urobilinogen,Urine Normal (Normal)
[2019-10-13 17:36] LABS: Bacteria,Urine None Seen per hpf (None-Few); Hyaline Casts,Urine None Seen per lpf (None-Few); RBC,Urine 15-30 per hpf (0-3); Squamous Epithelial Cell,Urine Many per lpf (None-Few)
[2019-10-13] MEDS ORDERED: *HR* Promethazine 25 MG/ML VIAL IVP ONE ×2 (18:26→22:00)
[2019-10-13] MEDS ORDERED: methylPREDNISolone 125 MG/2 ML VIAL IVP ONE (18:35)
[2019-10-13] MEDS ORDERED: Naloxone 0.4 MG/ML INJ IVP PRN (19:40)
[2019-10-13] MEDS ORDERED: Ondansetron 4 MG/2 ML VIAL IVP PRN (19:40)
[2019-10-13] MEDS: *HR* Heparin 5,000 UNIT/ML VIAL SQ SCH (22:25)
[2019-10-13] MEDS: MetroNIDAZOLE 500 MG/100 ML 500 MG/100 ML BAG IVPB SCH (23:50)
[2019-10-14 04:41] LABS: Basophils % 0.1 %; Hematocrit 43.6 % (35.3-44.9); Immature Granulocytes % 0.5 % (0-4); Lymphocytes % 10.4 %; Mean Corpuscular HGB Conc 33.3 g/dL (31.6-35.5); Mean Corpuscular Hemoglobin 31.3 pg (28.0-33.3); Mean Corpuscular Volume 94.2 fL (83.0-100.0); Mean Platelet Volume 9.9 fL (9.4-12.4); Monocytes # 0.1 K/mcL (0.0-1.3); Monocytes % 1.2 %; Neutrophils # 8.3 K/mcL (1.6-8.9); Platelet Count 311 K/mcL (140-400); Red Blood Count 4.63 M/mcL (3.82-4.97); Red Cell Distribution Width 12.9 % (11.5-14.5); Segmented Neutrophils % 87.8 %; White Blood Count 9.5 K/mcL (4.3-11.1)
[2019-10-14 04:42] LABS: Hemoglobin 14.5 g/dL (11.5-15.4)
[2019-10-14 04:49] VITALS: BP 108/80
[2019-10-14 04:59] LABS: BUN/Creatinine Ratio 20 (6-26); Blood Urea Nitrogen 11 mg/dL (6-20); Calcium 9.2 mg/dL (8.6-10.3); Carbon Dioxide 20 mEq/L (23-29); Chloride 108 mEq/L (98-107); Glucose 147 mg/dL (70-105); Osmolality,Calculated 286 (280-300); Potassium 3.9 mEq/L (3.5-5.1); Sodium 137 mEq/L (136-145); eGFR For African Americans > 60 (> 60); eGFR For Non-African Americans > 60 (> 60)
[2019-10-14] MEDS: *HR* Heparin 5,000 UNIT/ML VIAL SQ SCH (06:02)
[2019-10-14] MEDS: MetroNIDAZOLE 500 MG/100 ML 500 MG/100 ML BAG IVPB SCH (08:28)
== END 2019-10-14 13:05 | disposition home or self-care (01) ==
LOC: EMEROOARM 14:09 → 2NENU 14:09
PROVIDERS: ADMIT Family Medicine; ATTEND Family Medicine